=== PATIENT | male | born 1990 | race Caucasian/White ===

== ENCOUNTER 2021-04-18 08:40 | Emergency (ER) | payer OTHER ==
[~2021-04-18] VITALS: Ht 175.3 cm; Wt 69.5 kg
[2021-04-18] MEDS ORDERED: FAMOTIDINE INJ 20MG/2ML VIAL (S0028 PER 1) IVP ONE (10:20)
[2021-04-18] MEDS ORDERED: methylPREDNISolone 125MG 2ML VIAL IV ONE (10:20)
[2021-04-18] MEDS ORDERED: NS 1,000 ML IV ONE (10:20)
[2021-04-18] MEDS ORDERED: PRED20TA PO (12:05)
[2021-04-18 12:13] VITALS: BP 130/82
== END 2021-04-18 12:22 | disposition home or self-care (01) ==
LOC: M ED 08:40
DX: L25.5 Unspecified contact dermatitis due to plants, except food (principal)
CPT/HCPCS: 96361; 96374; 96375; 99283; J2930

== ENCOUNTER 2022-09-05 18:21 | Emergency (ER) | payer OTHER ==
[~2022-09-05] VITALS: Ht 175.3 cm; Wt 79.5 kg
[~2022-09-05 18:21] MED LIST: PRED20TA PO
[2022-09-05 19:25] VITALS: BP 143/93
[2022-09-05 20:04] LABS: HEMATOCRIT 44.7 % (42.0-52.0); HEMOGLOBIN 15.3 g/dl (13.5-17.5); MEAN CORPUSCULAR HEMOGLOBIN 31.4 pg (27.0-33.0); MEAN CORPUSCULAR HGB CONC 34.2 g/dl (32.0-36.5); MEAN CORPUSCULAR VOLUME 91.8 fl (80.0-96.0); PLATELET COUNT, AUTOMATED 251 10^3/uL (150-450); RED BLOOD COUNT 4.87 10^6/uL (4.30-6.10); WHITE BLOOD COUNT 10.7 10^3/uL (4.0-10.0)
[2022-09-05 20:30] LABS: AMPHETAMINES LEVEL URINE NEGATIVE (NEGATIVE); BARBITURATES URINE NEGATIVE (NEGATIVE); BENZODIAZEPINES URINE NEGATIVE (NEGATIVE)
[2022-09-05 20:31] LABS: CANNABINOIDS URINE NEGATIVE (NEGATIVE); METHADONE URINE NEGATIVE (NEGATIVE); OPIATES URINE NEGATIVE (NEGATIVE); PHENCYCLIDINE URINE NEGATIVE (NEGATIVE)
[2022-09-05 20:32] LABS: COCAINE METABOLITE URINE POSITIVE (NEGATIVE)
[2022-09-05 20:33] LABS: ETHYL ALCOHOL (ETHANOL) 0.009 % (0.000-0.010)
[2022-09-05 20:35] LABS: ACETAMINOPHEN LEVEL < 2.0 UG/ML (10.0-20.0); ALBUMIN 4.7 G/DL (3.2-5.2); ALKALINE PHOSPHATASE 54 U/L (46-116); ALT/SGPT 24 U/L (7.0-40); AST/SGOT 27 U/L (<34); BILIRUBIN,DIRECT 0.4 MG/DL (<0.4); BILIRUBIN,TOTAL 1.1 MG/DL (0.3-1.2); BLOOD UREA NITROGEN 15 MG/DL (9-23); CALCIUM LEVEL 9.6 MG/DL (8.5-10.1); CARBON DIOXIDE LEVEL 29 MMOL/L (20-31); CHLORIDE LEVEL 102 MMOL/L (98-107); CPK CREATINE PHOSPHOKINASE 236 U/L (46-171); CREATININE FOR GFR 1.07 MG/DL (0.70-1.30); GLOMERULAR FILTRATION RATE > 60.0 (>60); GLUCOSE, FASTING 70 MG/DL (60-100); POTASSIUM SERUM 4.2 MMOL/L (3.5-5.1); SALICYLATE LEVEL < 3.0 MG/DL (<30); SODIUM LEVEL 139 MMOL/L (136-145); TOTAL PROTEIN 7.7 G/DL (5.7-8.2)
[2022-09-05 20:36] LABS: THYROID STIMULATING HORMONE 0.691 uIU/ML (0.55-4.78)
[2022-09-05] MEDS ORDERED: COLLCAP PO (21:48)
[2022-09-05] MEDS ORDERED: VITA100093 PO (21:48)
[2022-09-05] MEDS ORDERED: HOME MED LIST COMPLETE! XX SCH (21:50)
[2022-09-06] MEDS ORDERED: IBUPROFEN 800 MG TAB PO ONE (01:10)
== END 2022-09-06 03:19 | disposition home or self-care (01) ==
LOC: M ED 18:21
DX: F43.0 Acute stress reaction (principal)